=== PATIENT | male | born 1995 | race Caucasian/White ===

== ENCOUNTER 2017-10-01 18:42 | Emergency (ER) | payer OTHER, BC ==
[2017-10-01 18:50] VITALS: BP 137/97
[2017-10-01] MEDS ORDERED: IBUPROFEN 600 MG TAB PO ONE (19:11)
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
== END 2017-10-01 19:24 | disposition home or self-care (01) ==
DX: S09.91XA Unspecified injury of ear, initial encounter (principal); T70.29XA Other effects of high altitude, initial encounter; V59.59XA Passenger in pick-up truck or van injured in collision with other motor vehicles in traffic accident, initial encounter; Y92.410 Unspecified street and highway as the place of occurrence of the external cause